=== PATIENT | female | born 1935 | race Hispanic/Latino ===

== ENCOUNTER 2018-12-02 10:53 | Emergency (ER) | payer OTHER, MEDICARE ==
[~2018-12-02 10:53] MED LIST: LEVO500T2 PO; LOSA25TA41 PO; METF-527 PO; PRAV20TA4 PO
[2018-12-02] MEDS ORDERED: LEVOFLOXACIN 500 MG/D5W 100 ML 100 ML ONE (11:19)
[2018-12-02] MEDS ORDERED: ACETAMINOPHEN 325 MG TAB ONE (11:19)
[2018-12-02 11:28] LABS: BASOPHILS % (AUTO) 0.5 % (0.0-5.0); HEMATOCRIT 41.5 % (36-48); MEAN CORPUSCULAR HGB CONC 32.9 g/dL (32.0-36.0); MEAN CORPUSCULAR VOLUME 85.3 fL (79-99); NEUTROPHILS % (AUTO) 84.5 % (40.0-77.0); NUCLEATED RED BLOOD CELLS 0.1 % (0.0-0.19); PLATELET COUNT (AUTO) 236 K/uL (130-400); RED BLOOD CELL COUNT(AUTO) 4.86 MIL/uL (4.00-5.50); RED CELL DISTRIBUTION WIDTH 16.7 % (11.0-15.5)
[2018-12-02 11:38] LABS: CREATININE 1.5 mg/dL (0.5-1.5); POTASSIUM 3.3 mmol/L (3.5-5.1)
[2018-12-02 11:42] LABS: ALBUMIN 3.3 g/dL (3.5-5.0); BILIRUBIN,TOTAL 0.7 mg/dL (0.2-1.0); TOTAL PROTEIN, SERUM 9.1 g/dL (6.0-8.3)
[2018-12-02 11:59] LABS: INR 0.99 (0.85-1.15); PARTIAL THROMBOPLASTIN TIME 30.1 SEC (26.3-35.5); PROTHROMBIN TIME 10.4 SEC (9.6-11.6)
[2018-12-02 12:03] LABS: APPEARANCE,URINE CLEAR (CLEAR); BILIRUBIN,URINE SMALL (NEGATIVE); COLOR,URINE YELLOW (YELLOW); GLUCOSE, URINE (UA) NEGATIVE (NEGATIVE); KETONES,URINE 15 mg/dL (NEGATIVE); LEUKOCYTE ESTERASE ,URINE SMALL (NEGATIVE); NITRATE,URINE NEGATIVE (NEGATIVE); OCCULT BLOOD,URINE LARGE (NEGATIVE); PROTEIN,URINE 100 mg/dL (NEGATIVE)
[2018-12-02 12:58] LABS: BACTERIA,URINE Many /HPF (None Seen); RBC,URINE 0-1 /HPF (0-1); SQUAMOUS EPITHELIAL CELL,UR Few /HPF (0-2)
[2018-12-02] MEDS ORDERED: CEFTRIAXONE SODIUM 1 GM ONE (14:16)
== END 2018-12-02 14:43 | disposition home or self-care (01) ==
LOC: EDH 10:53
DX: J11.1 Influenza due to unidentified influenza virus with other respiratory manifestations (principal); N39.0 Urinary tract infection, site not specified; I10 Essential (primary) hypertension; E11.9 Type 2 diabetes mellitus without complications; E78.5 Hyperlipidemia, unspecified; Z90.49 Acquired absence of other specified parts of digestive tract; Z98.890 Other specified postprocedural states
CPT/HCPCS: 36415; 71045; 80053; 81001; 83605 ×2; 85025; 85610; 85730; 87040 ×2; 87077; 87088; 87186; 87804 ×2; 93005; 96365; 96375; 99284; J0696; J1956